=== PATIENT | female | born 1975 | race Caucasian/White ===

== ENCOUNTER 2017-05-20 09:02 | Inpatient (IN) ==
--- NOTE | 2017-05-20 09:45 | Emergency Department Note ---
Disposition Clinical Impression: Recurrent seizures, Brain tumor, glioma Disposition: Admitted As Inpatient Condition: Fair Time of Disposition: 13:41 Seizure HPI - General Chief Complaint: ED Seizure Stated Complaint: seizure Time Seen by Provider: 05/20/17 09:22 Source: EMS Mode of arrival: EMS Limitations: no limitations Nursing Notes Reviewed: Yes Vital Signs Reviewed: Yes - History of Present Illness HPI Narrative: Patient is a 41-year-old female who presents to [facility] ED status post grand mal seizure. Patient is still slightly post ictal in the emergency department upon arrival. Per EMS, patient had a seizure while she was in her bathroom. Mom states she heard her fall and then went to check on her and saw her having a grand mal seizure. Does not know how long this lasted. Past medical history significant for glioblastoma in which she had brain surgery back in November of last year. Her family states that she started having seizures in March and has been on Depakote. The most recently increased the dosage of her Depakote about a month ago. Patient does follow-up with her neurologist Dr. Mathews at [place] and most recently saw him last week. Upon questioning the patient, she denies any prodromal symptoms and states she just passed out. States this is always how her seizures are. Family states these have been recurring more frequently approximately every 2 weeks. Pt Subjective Complaint: seizure Onset (ago): Just RISK MANAGEMENT ANALYST Description of Episode: tonic-clonic movement, post-event confusion Witnessed: yes - by bystander Seizure History: known seizure disorder Place: home Possible Precipitating Event: none Associated symptoms: Reports: confusion. Denies: cough, fever/chills, loss of appetite, shortness of breath, weakness Treatments prior to arrival: none - Related Data Home Medications Medication Instructions Recorded Confirmed Ascorbic Acid [Vitamin C] 500 mg PO DAILY 12/15/16 05/20/17 Metformin HCl [Metformin HCl ER] 1,000 mg PO QPM 05/20/17 05/20/17 Ondansetron [Zofran] 8 mg PO Q8HR PRN 05/20/17 05/20/17 Temozolomide [Temodar] 140 mg PO AD 05/20/17 05/20/17 Temozolomide [Temodar] 200 mg PO AD 05/20/17 05/20/17 Previous Rx's Medication Instructions Recorded Dexamethasone 2 mg PO BID #60 tab 02/18/17 Divalproex (12 HR) [Depakote (12 750 mg PO BID #60 tablet. 04/12/17 HR)] Allergies Allergy/AdvReac Type Severity Reaction Status Date / Time Penicillins Allergy Hives Verified 05/20/17 12:42 All systems ED: reviewed and negative except as stated. Past Medical History - Past Medical History Attestation: Yes The following information was validated with the patient. Source: patient Medical history: Reports: diabetes, hyperlipidemia, hypertension, other Psychiatric history: Reports: no psych history - Social History Smoking Status: Current every day smoker Smokeless Tobacco Status: Yes (Nicoderm patch daily) Alcohol use: Reports: none Drug use: Reports: none Physical Exam - General Limitations: altered mental status General appearance: alert - Head Head exam: atraumatic, normocephalic, normal inspection - Eye Eye exam: Present: EOMI - ENT ENT exam: normal exam, normal oropharynx, mucous membranes moist - Neck Neck exam: Present: normal inspection, full ROM, trachea midline - Chest Chest inspection: Present: normal inspection, symmetric chest wall rise - Respiratory Respiratory exam: Present: normal lung sounds bilaterally - Cardiovascular Cardiovascular exam: Present: regular rate, normal rhythm, normal heart sounds - Abdominal Exam Abdominal exam: Present: soft, Non-Tender. Absent: tenderness, distention, guarding, rebound, rigidity - Extremities Exam Extremities exam: Present: normal inspection, full ROM. Absent: tenderness, pedal edema - Neurological Exam Neurological exam: Present: alert, oriented X3. Absent: motor sensory deficit - Psychiatric Psychiatric exam: Present: normal affect, normal mood - Skin Skin exam: Present: warm, dry, intact, normal color Course Course Narrative: Patient seen and examined. Seizure with postictal period. However initially unwitnessed. Unsure if syncopal episode with head injury caused the seizure or if the seizure happened initially. With her, located history with the brain tumor, we will go ahead and get a CT head, Chelsea metz, [facility]. Her glucose levels were 90 per EMS. - Reevaluation(s) Reevaluation #1: Per social work, family and patient are ready for placement. They would like palliativecare consult. Discussed with hospitalist who has accepted patient for admission. Time: 13:37 Vital Signs Temperature 98.2 F 05/20/17 09:04 Pulse Rate 77 05/20/17 09:04 Respiratory Rate 20 05/20/17 09:04 Blood Pressure 94/80 05/20/17 09:04 O2 Sat by Pulse Oximetry 97 05/20/17 09:04 Temperature 98.2 F 05/20/17 09:04 Pulse Rate 60 05/20/17 11:51 Respiratory Rate 16 05/20/17 11:51 Blood Pressure 134/94 05/20/17 11:51 O2 Sat by Pulse Oximetry 97 05/20/17 11:51 Oxygen Delivery Oxygen Delivery Room Air Seizure - Medical Records Medical records reviewed: Yes I reviewed the patient's medical records. - Lab Data Lab results reviewed: Yes I reviewed the patient's lab results. Result diagrams: 05/20/17 10:31 Lab Results 05/20/17 Range/Units 10:31 Sodium 139 (136-145) mEq/L Potassium 3.8 (3.5-5.1) mEq/L Chloride 104 (98-107) mEq/L Carbon Dioxide 28 (23-29) mEq/L BUN 18 (6-20) mg/dL Creatinine 0.64 (0.60-1.20) mg/dL Est GFR ( Amer) > 60 (> 60) Est GFR (Non-Af Amer) > 60 (> 60) BUN/Creatinine Ratio 28 H (6-26) Glucose 62 L (70-105) mg/dL Calculated Osmolality 288 (280-300) Calcium 9.1 (8.6-10.3) mg/dL Valproic Acid 46 L (50-100) mcg/mL - Radiology Data Radiology results reviewed: Yes I reviewed the patient's radiology results. Head CT 05/20/17 09:23 IMPRESSION: 1. No definite acute intracranial abnormality. 2. Unchanged postoperative changes in the left frontal lobe. Unchanged edema extending across midline into the medial right frontal lobe. Underlying remnant tumor is not excluded and would be better evaluated with MRI. 3. 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 Tumor extension is not excluded. D/ / Akin Harrington MD / Akin Harrington MD Interpreting Provider: Akin Harrington MD Attestation Statement - Attestation Attestation: I examined this patient and my medical decision-making was reviewed with the Resident Physician. I agree with the documented findings, disposition and treatment plan as described except to the extent set forth below. Pt has glioblastoma, still receiving medical treatment but family has been told she only has a couple of months left. Sz today, + hx since dx, on Depakote. Neurologist at [place]. Family concerned she is not at her baseline, but sounds like this has been for a while now - I suspect that this is her new baseline, and she will not return to the level where they are comfortable caring for her. Pt told adoption social worker she needs to be placed somewhere bc family can't take care of her the way she is. Family not ready for hospice per conversation with adoption social worker but ready for palliative care and placement. Loaded with Mat in ED (level sub-therapeutic), admitting for evaluation and placement.
[2017-05-20 11:33] LABS: BUN/Creatinine Ratio 28 (6-26); Blood Urea Nitrogen 18 mg/dL (6-20); Calcium 9.1 mg/dL (8.6-10.3); Carbon Dioxide 28 mEq/L (23-29); Chloride 104 mEq/L (98-107); Glucose 62 mg/dL (70-105); Osmolality,Calculated 288 (280-300); Potassium 3.8 mEq/L (3.5-5.1); Sodium 139 mEq/L (136-145); eGFR For African Americans > 60 (> 60); eGFR For Non-African Americans > 60 (> 60)
[2017-05-20 12:08] LABS: Valproate 46 mcg/mL (50-100)
[2017-05-20] MEDS ORDERED: Valproic Acid INJ 1,000 MG in 0.9 % Sodium Chloride 100 ML IVPB ONE (12:11)
[2017-05-20] MEDS ORDERED: Ondansetron ODT 4 MG TAB.RAPDIS PO PRN (13:18)
[2017-05-20] MEDS ORDERED: Naloxone 0.4 MG/ML INJ IVP PRN (13:19)
--- NOTE | 2017-05-20 13:24 | Internal Med History&Physical ---
<Salvador Green - Last Filed: 05/20/17 13:43> Date of Encounter: 05/20/17 Time of Encounter: 13:22 Assessment and Plan (1) Seizure grand mal Current visit: Yes Status: Acute Increasing frequency of grand mal seizures secondary to glioblastoma multiforme PLAN: -Telemetry -Seizure precautions -Padded side rails -Neuro consult- Spoke with Dr. Sawant how has agreed to consult on the patient -Consult to palliative care. Dr. Smith has agreed to see the patient and further discuss options -Resume Depakote, 1gm bolus IV depakote given in ED -Resume dexamethasone -Heparin 5000 U SQ BID -CBCD, BMP and depakote level in the am (2) Brain tumor, glioma Current visit: Yes Status: Acute H/o glioblasoma multiforme. She see's Dr. Mathews at [facility] in [place], [place]. I spoke with Dr. Mathews who is unsure of her prognosis until after the f/u MRI 4 weeks from now. The patient initially was planning pursue to both chemotherapy and palliative care. However I spoke with Dr. Mathews who stated that she would not be able to receive chemotherapy and palliative care at the same time. She is now unsure as to whether or not she would like to pursue palliative care. Her depakote levels are low. She denies any issues with medication compliance. -Continue Depakote 750mg BID -1gm depakote bolus given in ED -Continue dexamethasone -seizure precautions -apply padding to side rails (3) Diabetes 1.5, managed as type 2 Current visit: Yes Status: Chronic H/O DMII. Holding sliding scale coverage for now hypoglycemic upon arrival to ED. AC/HS accucheck (4) HTN (hypertension) Current visit: Yes Status: Acute stable Qualifiers: Hypertension type: essential hypertension Qualified Code(s): I10 - Essential (primary) hypertension (5) DVT prophylaxis Current visit: Yes Status: Acute Heparin 5000 units SC BID Internal Medicine - H&P: HPI Chief complaint: seizures Admitted From: Home Plans for Post Hospital Care: Home History of present illness: Ms. Ohara is a 41 year old female with a PMH of diabetes, hyperlipidemia, and hypertension who presents to [facility] today status post grand mal seizure. Per the ED physician was reported the patient had a seizure in the bathroom this morning. She and the family both report that she has been having an increase in frequency of seizures for approximately the last 2 weeks. He reports that her mom heard her fall and found her on the ground having a grand mal seizure. She requested a is still mildly postictal. The patient has a medical history for glioblastoma multiform to which she had brain surgery in November 2016. She states that she has been having increasing frequency of seizures since March and has been on Depakote and dexamethasone since. She last saw Dr. Mathews from [facility] approximately 10 days ago and reports that he did not change any of her medications at this time. She denies any prodromal symptoms states that she just feels like she passes out. She denies any constitutional symptoms with the exception of weakness and fatigue. She denies any chest pain, shortness of breath, abdominal pain, nausea, vomiting or diarrhea. Additionally , she denies any vision changes, dizziness, or N/T Past Med Surg Social Fam HX - Past Medical History Medical history: diabetes, hyperlipidemia, hypertension, other Psychiatric history: no psych history - Social History Smoking Status: Current every day smoker Smokeless Tobacco Status: Yes (Nicoderm patch daily) Alcohol use: none Drug use: none - Family History Father Hx Family Endocrine Disorder: Yes (diabetes) Internal Medicine - H&P: Meds Ascorbic Acid [Vitamin C] 500 mg PO DAILY 12/15/16 [History] Dexamethasone 2 mg PO BID #60 tab 02/18/17 [Rx] Divalproex (12 HR) [Depakote (12 HR)] 750 mg PO BID #60 tablet. 04/12/17 [Rx] Metformin HCl [Metformin HCl ER] 1,000 mg PO QPM 05/20/17 [History] Ondansetron [Zofran] 8 mg PO Q8HR PRN 05/20/17 [History] Temozolomide [Temodar] 140 mg PO AD 05/20/17 [History] Temozolomide [Temodar] 200 mg PO AD 05/20/17 [History] 3 Allergy/AdvReac Type Severity Reaction Status Date / Time Penicillins Allergy Hives Verified 05/20/17 12:42 All Systems PM: A 10-system review of systems was performed and is negative for pertinent findings except as documented above in the HPI. - Constitutional Constitutional: fatigue, falls, weakness - EENT Eyes: no blurry vision, no loss of peripheral vision, no loss of vision, no photophobia, no seeing flashes, no spots in vision, no tunnel vision - Cardiovascular Cardiovascular ROS IM: no chest pain, no diaphoresis, no dyspnea, no lightheadedness, no palpitations, no syncope - Respiratory Respiratory: no cough, no dyspnea, no wheezing, no excessive phlegm production - Gastrointestinal Gastrointestinal: no abdominal pain, no diarrhea, no hematemesis, no hematochezia, no melena, no nausea, no vomiting - Genitourinary Genitourinary: no change in urinary stream, no dysuria, no flank pain, no hematuria - Musculoskeletal Musculoskeletal ROS IM: no numbness, no tingling - Integumentary Integumentary IM: no rash, no unusual bruising - Neurological Neurological ROS: other, no abnormal movements, no abnormal speech, no convulsions, no dizziness, no loss of vision, no memory loss, no numbness Additional comments: grand mal seizures - Constitutional Vitals: Temp Pulse Resp BP Pulse Ox 98.2 F 60 16 134/94 97 05/20/17 09:04 05/20/17 11:51 05/20/17 11:51 05/20/17 11:51 05/20/17 11:51 General appearance: Present: cooperative, A&O X 3, no acute distress, answers questions appropriately - Head Head exam: Present: atraumatic, normocephalic - Eye Eye exam: Present: EOMI, PERRL - Neck Neck exam general surgery: Present: supple, trachea midline. Absent: lymphadenopathy - Respiratory Respiratory exam: Present: decreased breath sounds, CTAB. Absent: accessory muscle use, rales, rhonchi, wheezes - Cardiovascular Cardiovascular exam: Present: RRR, +S1, +S2. Absent: diastolic murmur, gallop, rubs, systolic murmur - GI/Abdominal GI/Abdominal exam: Present: normal bowel sounds, soft, no peritoneal signs. Absent: distended, tenderness - Extremities Exam Extremities exam: Present: warm, radial pulses palpable and symmetrical. Absent : calf tenderness, cyanotic, pedal edema - Neurological Exam Neurological exam: Present: alert, CN II-XII intact, oriented X3. Absent: no focal deficits, strengths equal and symetr throughout, pronater drift, facial droop, speech deficit - Skin Skin exam: Present: dry, intact Internal Med - H&P Results - Labs CBC & Chem 7: 05/20/17 10:31 - EKG Data -: EKG Interpreted by Myself - Impressions Impressions Head CT 05/20/17 09:23 IMPRESSION: 1. No definite acute intracranial abnormality. 2. Unchanged postoperative changes in the left frontal lobe. Unchanged edema extending across midline into the medial right frontal lobe. Underlying remnant tumor is not excluded and would be better evaluated with MRI. 3. 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 Tumor extension is not excluded. D/ / Akin Harrington MD / Akin Harrington MD Interpreting Provider: Akin Harrington MD <JohnFrancis - Last Filed: 05/20/17 17:23> Date of Encounter: 05/20/17 Internal Medicine - H&P: HPI History of present illness: Ms. Ohara is a 41 year old female All Systems PM: A 10-system review of systems was performed and is negative for pertinent findings except as documented above in the HPI. - Constitutional Vitals: Temp Pulse Resp BP Pulse Ox 98.1 F 81 16 107/72 100 05/20/17 14:40 05/20/17 14:40 05/20/17 14:40 05/20/17 14:40 05/20/17 14:40 Internal Med - H&P Results - Labs CBC & Chem 7: 05/20/17 10:31 - Attending Attestation I have personally performed a face to face evaluation on this patient. I have reviewed and agree with the care plan provided by JANELLE Green. History and Exam by me shows: Ms. Ohara is a 41 year old female with a PMH of diabetes, hyperlipidemia, hypertension recently diagnosed Glioblastoma s/p surgery since then pt has been having recurrent seizure now she presents to [facility] ER today with inc frequency grand mal seizures. Pt is alert, awake and O x 3, however still looks some confused. Talked to the pt's family at bed side. Chest: Diminished BS b/l Heart: S1S2 ++ RRR Neuro : A, A, O x 3.. slightly confused 1. Acute and recurrent seizure Due to Giloblasotma Depakote levels are low. Talked his Heme Onc , who suggested continue same dose of Depakote pt might not taking her meds as she should Palliative care team consulted
[2017-05-20] MEDS: TEMOZOLOMIDE 140 MG PO SCH (13:50)
[2017-05-20] MEDS: TEMOZOLOMIDE PO SCH (13:51)
--- NOTE | 2017-05-20 15:14 | Electrocardiograph Report ---
[facility] Test Date: 2017-05-20 Pat Name: Izabel Ohara Department: 102 Room: 2S4 Gender: F Product Sales Engineer: : 1975 Requested By: Vivien Duque Order Number: [id number] Reading MD: Skip Mccurdy MD Measurements Intervals [place] Rate: 81 P: 55 WI: 160 QRS: 24 QRSD: 94 T: 43 QT: 386 QTc: 424 Interpretive Statements SINUS RHYTHM wnl Electronically Signed On 05-20-2017 15:13:14 EST by Skip Mccurdy MD
--- NOTE | 2017-05-20 15:39 | Palliative - Consult Note ---
Date of Encounter: 05/20/17 Time of Encounter: 15:00 - Assessment and Plan (1) Nausea Current Visit: Yes Status: Acute Assessment and plan: Continue Ondansetron as needed and monitor effectiveness. (2) Counseling regarding advanced care planning and goals of care Current Visit: Yes Status: Acute Assessment and plan: Patient family at bedside, she remains slightly altered from seizure. Lives with mother, Judy, her brother Carl and his Izabel are power of attorneys and she states she will bring in copies of pt's advanced directives. She also states pt is DNR and that they have a completed state form, but she cannot remember if she is comfort care or DNR Arrest. Discussed at length - will transition to DNR/DNI at this time, and revisit once they bring her form and advanced directives in. Pt mother having difficulty caring for her, and family states this is no longer safe for her to continue. They are desiring ECF placement, Aden Cooper present and speaking with family. They desire placement at [facility]. Discussed goals of care - pt and family desire to continue current chemotherapy regimen until they have MRI completed and discuss results with oncologist at [facility]. Discussed hospice care at length - they do not want to proceed with hospice at this time, but understands that when she either does not want further chemo or is no longer a candidate, hospice could assist with her care. Will continue to follow. (3) Brain tumor, glioma Current Visit: Yes Status: Acute (4) Seizure grand mal Current Visit: Yes Status: Acute Assessment and plan: Continues on Decadron as per home dose. Palliative-CN HPI - Data of Consult Consult date: 05/20/17 Requesting Physician: Rosanna Luna CNP Primary Care Provider: Dennis Bryant MD - Consult Narrative History of present illness: Ms. Ohara is a 41 year old female with a history of glioblastoma, who was admitted after she had a seizure at home. Mother at bedside states she was home with patient when she found her in seizure and states that patient did not "come to" for about 30 minutes. She is alert but has altered mental status. She was diagnosed in Nov 2016 and is under the care of at [facility]. She was recently started on Temozolomide - and just finishing last dose of this for the month. She is scheduled for an MRI on May to assess status of brain cancer. Other medical history includes : Diabetes, hyperlipidemia, and hypertension. She currently lives with her mother at home. Upon my visit, patient is awake alert and oriented to person and place. She is able to answer most questions appropriately and follow simple commands, but family states that she is "not herself" since seizure event this am. Denies any pain/shortness of breath/nausea/vomiting/constipation/anxiety. Resting quietly. Mother and sister n law at bedside. CC: Rosanna Luna CNP Past Med Surg Social Fam HX - Past Medical History Medical history: diabetes, hyperlipidemia, hypertension, other Psychiatric history: no psych history - Social History Smoking Status: Current every day smoker Smokeless Tobacco Status: Yes (Nicoderm patch daily) Alcohol use: none Drug use: none - Family History Father Hx Family Endocrine Disorder: Yes (diabetes) Medications and Allergies Ascorbic Acid [Vitamin C] 500 mg PO DAILY 12/15/16 [History] Dexamethasone 2 mg PO BID #60 tab 02/18/17 [Rx] Divalproex (12 HR) [Depakote (12 HR)] 750 mg PO BID #60 tablet. 04/12/17 [Rx] Metformin HCl [Metformin HCl ER] 1,000 mg PO QPM 05/20/17 [History] Ondansetron [Zofran] 8 mg PO Q8HR PRN 05/20/17 [History] Temozolomide [Temodar] 140 mg PO AD 05/20/17 [History] Temozolomide [Temodar] 200 mg PO AD 05/20/17 [History] 3 Allergy/AdvReac Type Severity Reaction Status Date / Time Penicillins Allergy Hives Verified 05/20/17 12:42 ROS unobtainable: due to mental status Palliative Care-Exam - Constitutional Vitals: Temp Pulse Resp BP Pulse Ox 98.1 F 81 16 107/72 100 05/20/17 14:40 05/20/17 14:40 05/20/17 14:40 05/20/17 14:40 05/20/17 14:40 General appearance: Present: no acute distress - Head Head Exam: Present: normal inspection, normocephalic - Eye Eye exam: Present: normal appearance, PERRL - Respiratory Respiratory exam: Present: CTAB - Cardiovascular Cardiovascular exam: Present: +S1, +S2 - GI/Abdominal Exam GI/Abdominal exam: Present: normal bowel sounds, soft - Extremities Exam Extremities exam: Present: normal capillary refill, normal inspection - Neurological Exam Neurological exam: Present: alert, strengths equal and symetr throughout Additional comments: Oriented to person and place. Reoriented to time and situation - Psychiatric Psychiatric exam: Present: flat affect - Skin Skin exam: Present: dry, pallor, warm Internal Medicine - CN: Reslt - Labs CBC & Chem 7: 05/20/17 10:31 Consult Discharge Plan - Plan Referrals: Dennis Bryant MD [Primary Care Provider] - Palliative Quality Palliative Quality: Screen for Code Status: Yes, Screen for Goals of Care: Yes, Screen for Pain: Yes, If Pain Regimen Started, Initiate Bowel Regimen: NA, Screen for Nausea/Vomitting: Yes Code Status: 05/20/17 14:28 DNR [Resuscitation Status: Active] [RES] Routine Comment: Resuscitation Status: [id number]
--- NOTE | 2017-05-20 15:52 | Palliative - Consult Note ---
Date of Encounter: 05/20/17 - Assessment and Plan (1) Nausea Current Visit: Yes Status: Acute (2) Counseling regarding advanced care planning and goals of care Current Visit: Yes Status: Acute (3) Brain tumor, glioma Current Visit: Yes Status: Acute (4) Seizure grand mal Current Visit: Yes Status: Acute Palliative-CN HPI - Data of Consult Requesting Physician: Rosanna Luna CNP Primary Care Provider: Dennis Bryant MD - Consult Narrative History of present illness: Ms. Ohara is a 41 year old female CC: Rosanna Luna CNP Past Med Surg Social Fam HX - Past Medical History Medical history: diabetes, hyperlipidemia, hypertension, other Psychiatric history: no psych history - Social History Smoking Status: Current every day smoker Smokeless Tobacco Status: Yes (Nicoderm patch daily) Alcohol use: none Drug use: none - Family History Father Hx Family Endocrine Disorder: Yes (diabetes) Medications and Allergies Ascorbic Acid [Vitamin C] 500 mg PO DAILY 12/15/16 [History] Dexamethasone 2 mg PO BID #60 tab 02/18/17 [Rx] Divalproex (12 HR) [Depakote (12 HR)] 750 mg PO BID #60 tablet. 04/12/17 [Rx] Metformin HCl [Metformin HCl ER] 1,000 mg PO QPM 05/20/17 [History] Ondansetron [Zofran] 8 mg PO Q8HR PRN 05/20/17 [History] Temozolomide [Temodar] 140 mg PO AD 05/20/17 [History] Temozolomide [Temodar] 200 mg PO AD 05/20/17 [History] 3 Allergy/AdvReac Type Severity Reaction Status Date / Time Penicillins Allergy Hives Verified 05/20/17 12:42 Palliative Care-Exam - Constitutional Vitals: Temp Pulse Resp BP Pulse Ox 98.1 F 81 16 107/72 100 05/20/17 14:40 05/20/17 14:40 05/20/17 14:40 05/20/17 14:40 05/20/17 14:40 General appearance: Present: no acute distress Internal Medicine - CN: Reslt - Labs CBC & Chem 7: 05/20/17 10:31 Consult Discharge Plan - Plan Referrals: Dennis Bryant MD [Primary Care Provider] - Palliative Quality Palliative Quality: Screen for Code Status: Yes, Screen for Goals of Care: Yes, Screen for Pain: Yes, If Pain Regimen Started, Initiate Bowel Regimen: NA, Screen for Nausea/Vomitting: Yes Code Status: 05/20/17 14:28 DNR [Resuscitation Status: Active] [RES] Routine Comment: Resuscitation Status: [id number]
[2017-05-20] MEDS: *HR* Heparin 5,000 UNIT/ML VIAL SQ SCH (18:21)
[2017-05-20] MEDS: Divalproex (12 HR) 250 MG TABLET PO SCH (20:01)
[2017-05-21 04:44] LABS: Basophils # 0.1 K/mcL (0.0-0.2); Eosinophils # 0.1 K/mcL (0.0-0.6); Eosinophils % 0.9 %; Hematocrit 40.3 % (35.3-44.9); Hemoglobin 13.3 g/dL (11.5-15.4); Immature Granulocytes % 4.3 % (0-4); Lymphocytes # 1.1 K/mcL (0.6-4.6); Lymphocytes % 16.9 %; Mean Corpuscular Hemoglobin 33.4 pg (28.0-33.3); Mean Corpuscular Volume 101.3 fL (83.0-100.0); Mean Platelet Volume 9.4 fL (9.4-12.4); Monocytes # 0.7 K/mcL (0.0-1.3); Monocytes % 10.4 %; Neutrophils # 4.5 K/mcL (1.6-8.9); Platelet Count 209 K/mcL (140-400); Red Blood Count 3.98 M/mcL (3.82-4.97); Red Cell Distribution Width 13.7 % (11.5-14.5); Segmented Neutrophils % 66.5 %
[2017-05-21 05:04] LABS: BUN/Creatinine Ratio 28 (6-26); Blood Urea Nitrogen 18 mg/dL (6-20); Calcium 8.8 mg/dL (8.6-10.3); Carbon Dioxide 28 mEq/L (23-29); Chloride 104 mEq/L (98-107); Glucose 132 mg/dL (70-105); Osmolality,Calculated 292 (280-300); Potassium 4.3 mEq/L (3.5-5.1); Sodium 139 mEq/L (136-145); eGFR For African Americans > 60 (> 60); eGFR For Non-African Americans > 60 (> 60)
[2017-05-21] MEDS: *HR* Heparin 5,000 UNIT/ML VIAL SQ SCH ×2 (05:34→18:45)
--- NOTE | 2017-05-21 09:48 | Palliative Progress Note ---
Date of Encounter: 05/21/17 Time of Encounter: 09:30 - Assessment and plan (1) Brain tumor, glioma Current Visit: Yes Status: Acute Assessment and plan: Neurology has been consulted per Dr. Bennett, will follow recommendations. (2) Seizure grand mal Current Visit: Yes Status: Acute (3) Counseling regarding advanced care planning and goals of care Current Visit: Yes Status: Acute Assessment and plan: Confirmed code status with patient, reported accurate information provided by family and keep code status current. Confirmed placement need at discharge, SW working for completion. (4) Nausea Current Visit: Yes Status: Acute Assessment and plan: Denies nausea at time of exam, continue Zofran as needed. - Time Spent With Patient Total time spent is greater than 50% in coordination of care (as documented) at patient's floor/unit and/or counseling patient: - Subjective Interval history: Patient is awake, alert and oriented on arrival to room. Patient laying with head against side rails that were cushioned for seizure precautions. Assisted patient to reposition for comfort. No complaints of pain, anxiety, or nausea. Confirms need for ECF for placement upon discharge, understands mother is no longer able to care for her. - Constitutional Vitals: Abnormal lab results MCV 101.3 fL (83.0-100.0) H 05/21/17 04:22 MCH 33.4 pg (28.0-33.3) H 05/21/17 04:22 Immature Gran % 4.3 % (0-4) H 05/21/17 04:22 BUN/Creatinine Ratio 28 (6-26) H 05/21/17 04:22 Glucose 132 mg/dL (70-105) H 05/21/17 04:22 POC Glucose 181 (58-89) H 05/20/17 20:41 - Head Head exam: Present: normocephalic - Eye Eye exam: Present: normal appearance, periorbital swelling Additional comments: to left periorbital area. Normal appearance to right periorbital area. - ENT ENT exam: Present: mucous membranes moist - Neck Neck exam: Present: full ROM, normal inspection - Respiratory Respiratory exam: Present: CTAB. Absent: respiratory distress - Cardiovascular Cardiovascular exam: Present: +S1, +S2 - GI/Abdominal GI/Abdominal exam: Present: hypoactive bowel sounds, soft. Absent: guarding, tenderness - Rectal Rectal exam: Present: deferred - Neurological Exam Neurological exam: Present: alert, oriented X3 - Psychiatric Psychiatric exam: Present: flat affect Palliative Quality Palliative Quality: Screen for Code Status: Yes, Screen for Goals of Care: Yes, Screen for Pain: Yes, If Pain Regimen Started, Initiate Bowel Regimen: NA, Screen for Nausea/Vomitting: Yes Code Status: 05/20/17 14:28 DNR [Resuscitation Status: Active] [RES] Routine Comment: Resuscitation Status: [id number] - Labs CBC & Chem 7: 05/21/17 04:22 05/21/17 04:22 Labs: Laboratory Results - last 24 hr 05/20/17 05/20/17 05/20/17 14:26 14:30 17:32 WBC RBC Hgb Hct MCV MCH MCHC RDW Plt Count MPV Immature Gran % Seg Neutrophils % Lymphocytes % Monocytes % Eosinophils % Basophils % Neutrophils # Lymphocytes # Monocytes # Eosinophils # Basophils # Sodium Potassium Chloride Carbon Dioxide BUN Creatinine Est GFR ( Amer) Est GFR (Non-Af Amer) BUN/Creatinine Ratio Glucose POC Glucose 42 L* 51 L 100 H Calculated Osmolality Calcium Valproic Acid 05/20/17 05/21/17 05/21/17 20:41 04:22 04:22 WBC 6.7 RBC 3.98 Hgb 13.3 Hct 40.3 MCV 101.3 H MCH 33.4 H MCHC 33.0 RDW 13.7 Plt Count 209 MPV 9.4 Immature Gran % 4.3 H Seg Neutrophils % 66.5 Lymphocytes % 16.9 Monocytes % 10.4 Eosinophils % 0.9 Basophils % 1.0 Neutrophils # 4.5 Lymphocytes # 1.1 Monocytes # 0.7 Eosinophils # 0.1 Basophils # 0.1 Sodium 139 Potassium 4.3 Chloride 104 Carbon Dioxide 28 BUN 18 Creatinine 0.65 Est GFR ( Amer) > 60 Est GFR (Non-Af Amer) > 60 BUN/Creatinine Ratio 28 H Glucose 132 H POC Glucose 181 H Calculated Osmolality 292 Calcium 8.8 Valproic Acid 05/21/17 04:22 WBC RBC Hgb Hct MCV MCH MCHC RDW Plt Count MPV Immature Gran % Seg Neutrophils % Lymphocytes % Monocytes % Eosinophils % Basophils % Neutrophils # Lymphocytes # Monocytes # Eosinophils # Basophils # Sodium Potassium Chloride Carbon Dioxide BUN Creatinine Est GFR ( Amer) Est GFR (Non-Af Amer) BUN/Creatinine Ratio Glucose POC Glucose Calculated Osmolality Calcium Valproic Acid 54 Consult Discharge Plan - Plan Referrals: Dennis Bryant MD [Primary Care Provider] -
[2017-05-21] MEDS: Ascorbic Acid 500 MG TABLET PO SCH (10:11)
[2017-05-21] MEDS: Divalproex (12 HR) 250 MG TABLET PO SCH ×2 (10:11→20:23)
--- NOTE | 2017-05-21 11:15 | Neurology Progress Note ---
Date of Encounter: 05/21/17 Time of Encounter: 11:14 Assessment and Plan (1) Recurrent seizures Current Visit: Yes Status: Acute Objective - Constitutional Vitals: Temp Pulse Resp BP Pulse Ox 99.0 F 65 16 100/70 96 05/21/17 10:59 05/21/17 10:59 05/21/17 10:59 05/21/17 10:59 05/21/17 10:59 Results - Laboratory Findings CBC and BMP: 05/21/17 04:22 05/21/17 04:22 Abnormal lab findings: Abnormal lab results MCV 101.3 fL (83.0-100.0) H 05/21/17 04:22 MCH 33.4 pg (28.0-33.3) H 05/21/17 04:22 Immature Gran % 4.3 % (0-4) H 05/21/17 04:22 BUN/Creatinine Ratio 28 (6-26) H 05/21/17 04:22 Glucose 132 mg/dL (70-105) H 05/21/17 04:22 POC Glucose 181 (58-89) H 05/20/17 20:41 Consult Discharge Plan - Plan Referrals: Dennis Bryant MD [Primary Care Provider] -
--- NOTE | 2017-05-21 11:15 | Neurology - Consult Note ---
<BrandonsakshiMichoacano alejo - Last Filed: 05/21/17 14:22> Date of Encounter: 05/21/17 Time of Encounter: 11:15 Assessment and Plan (1) Recurrent seizures Current Visit: Yes Status: Acute 40-year-old female with history of stage IV glioblastoma multiforme presented after increased seizure activity found to have Depakote level that was low. Previous frontal lobe surgery in November with increasing seizure activity over the last 2 weeks. Since admission she has received 1 g Depakote bolus and continued on Depakote 75 mg by mouth twice a day with no recurrent seizure activity. She is also receiving dexamethasone and is on seizure precautions which are all appropriate at this time. She has remained stable no new or changed neurologic activity since admission. Patient likely stable for discharge and follow-up with her neurologist. Continue on Depakote 750 mg twice a day History of Present Illness HPI: Ms. Ohara is a 41 year old female known medical history of diabetes, hypertension, hyperlipidemia and glioblastoma multiform Presented with symptoms of grand mal seizure. She had fallen at home her by her mother and found to have seizure-like activity involving her entire body. She last had frontal lobe surgery to remove cancerous growth in November. Over the last few months she has had increased seizure-like activity and was supposed to have increased her Depakote but had not obtained that prescription yet. Since admission she has not had any seizure-like activity she does not have any current pain or discomfort or neurologic abnormalities. She denies any other acute problems at this time. Past Med Surg Social Fam HX - Past Medical History Medical history: diabetes, hyperlipidemia, hypertension, other Psychiatric history: no psych history - Social History Smoking Status: Current every day smoker Smokeless Tobacco Status: Yes (Nicoderm patch daily) Alcohol use: none Drug use: none - Family History Father Hx Family Endocrine Disorder: Yes (diabetes) Medications and Allergies Ascorbic Acid [Vitamin C] 500 mg PO DAILY 12/15/16 [History] Dexamethasone 2 mg PO BID #60 tab 02/18/17 [Rx] Divalproex (12 HR) [Depakote (12 HR)] 750 mg PO BID #60 tablet. 04/12/17 [Rx] Metformin HCl [Metformin HCl ER] 1,000 mg PO QPM 05/20/17 [History] Ondansetron [Zofran] 8 mg PO Q8HR PRN 05/20/17 [History] Temozolomide [Temodar] 140 mg PO AD 05/20/17 [History] Temozolomide [Temodar] 200 mg PO AD 05/20/17 [History] 3 Allergy/AdvReac Type Severity Reaction Status Date / Time Penicillins Allergy Hives Verified 05/20/17 12:42 All Systems: The remainder of the systems were reviewed and are negative - Constitutional Constitutional ROS IM: no anorexia, no chills, no fatigue, no lethargy - Nose, Mouth, Throat Nose, mouth and throat: no disequilibrium - Cardiovascular Cardiovascular ROS IM: no irregular heart rhythm, no radiating pain, no rapid heart rate, no slow heart rate - Respiratory Respiratory IM: no cough, no dyspnea, no wheezing - Gastrointestinal Gastrointestinal: no nausea, no vomiting - Musculoskeletal Musculoskeletal ROS IM: no numbness, no tingling - Neurological Neurological ROS: convulsions, other (Seizure activity) Physical Examination - Vital Signs Vital Signs: Initial Vital Signs Temp Pulse Resp BP Pulse Ox 98.2 F 77 20 94/80 97 05/20/17 09:04 05/20/17 09:04 05/20/17 09:04 05/20/17 09:04 05/20/17 09:04 - Constitutional General appearance: comfortable - Neurologic Sensorimotor examination: intact Detailed motor examination: grossly full strength in all extremities, full strength in all major muscle groups Motor examination - right side: 5/5: deltoids, biceps, triceps, wrist flexion, wrist extension, mailing clerk, hip flexors, tibialis Anterior, quadriceps, toe extension (EHL), plantarflexion Motor examination - left side: 5/5: deltoids, biceps, triceps, wrist flexion, wrist extension, hip flexors, mailing clerk, quadriceps, tibialis Anterior, toe extension (EHL), plantarflexion Detailed sensory examination: intact Reflex and gait examination: intact Reflexes: Biceps: 2+, Triceps: 2+, Brachioradialis: 2+, Patella: 2+, Achilles: 2 + Mental Status Examination: awake, alert, oriented to person, oriented to place, oriented to time, follows commands appropriately, answers questions appropriately, no agnosia, no aphasia, no aproxia Cranial nerve examination: PERRL, EOMI, sensory to face intact, mastication intact, no facial asymmetry is present, no dysarthria, hearing is intact symmetrically, soft palate elevates bilaterally upon phonation, flexes SCM and trapezius muscles symmetrically with full power, tongue protrudes midline, no atrophy or facial fasiculations present Results - Laboratory Findings CBC and BMP: 05/21/17 04:22 05/21/17 04:22 Abnormal lab findings: Abnormal lab results MCV 101.3 fL (83.0-100.0) H 05/21/17 04:22 MCH 33.4 pg (28.0-33.3) H 05/21/17 04:22 Immature Gran % 4.3 % (0-4) H 05/21/17 04:22 BUN/Creatinine Ratio 28 (6-26) H 05/21/17 04:22 Glucose 132 mg/dL (70-105) H 05/21/17 04:22 POC Glucose 181 (58-89) H 05/20/17 20:41 Consult Discharge Plan - Plan Referrals: Denins Bryant MD [Primary Care Provider] - <Atul Watkins I - Last Filed: 05/21/17 16:25> Date of Encounter: 05/21/17 Assessment and Plan (1) Recurrent seizures Current Visit: Yes Status: Acute Pt was seen and examined, my medical decision was reviewed with the Resident Physician, I agree with the documented findings, disposition and treatment plas as described except to the extent set forth below Patient is currently stable I suggest continuing her on current dose of Depakote level is therapeutic now she is already set up with a neurologist as well as with oncology at [facility] suggest to follow up with them Okay to discharge from neurology standpoint Atul Watkins MD All Systems: The remainder of the systems were reviewed and are negative Physical Examination - Vital Signs Vital Signs: Initial Vital Signs Temp Pulse Resp BP Pulse Ox 98.2 F 77 20 94/80 97 05/20/17 09:04 05/20/17 09:04 05/20/17 09:04 05/20/17 09:04 05/20/17 09:04 Results - Laboratory Findings CBC and BMP: 05/21/17 04:22 05/21/17 04:22 Abnormal lab findings: Abnormal lab results MCV 101.3 fL (83.0-100.0) H 05/21/17 04:22 MCH 33.4 pg (28.0-33.3) H 05/21/17 04:22 Immature Gran % 4.3 % (0-4) H 05/21/17 04:22 BUN/Creatinine Ratio 28 (6-26) H 05/21/17 04:22 Glucose 132 mg/dL (70-105) H 05/21/17 04:22
--- NOTE | 2017-05-21 14:39 | Internal Med Progress Note ---
Date of Encounter: 05/21/17 Time of Encounter: 14:28 - Assessment and plan (1) Brain tumor, glioma Current Visit: Yes Status: Acute Assessment and plan: Patient has a history of glioblastoma multiform She follows at our and [facility]. She is to have a follow-up MRI 4 weeks from now with Dr. Mathwes Palliative care was consulted and talked with the family , POA. CODE STATUS is now DNR comfort care arrest DNI Continue dexamethasone Heparin 5000 units subcutaneous twice a day Continue Depakote, 1 g bolus IV Depakote was given in the ED. Depakote level was within normal parameters this morning Neurology service saw the patient and stated she is cleared to be discharged when placement is arranged. He will follow-up with her oncology group at [place] (2) DVT prophylaxis Current Visit: Yes Status: Acute Assessment and plan: Heparin subcutaneous twice a day (3) HTN (hypertension) Current Visit: Yes Status: Acute Assessment and plan: Blood pressure is stable Qualifiers: Hypertension type: essential hypertension Qualified Code(s): I10 - Essential (primary) hypertension (4) Seizure grand mal Current Visit: Yes Status: Acute Assessment and plan: Limits increasing frequency of the seizures secondary to her globablastoma Seizure precautions Neuro consult and with Depakote level at a therapeutic range patient is cleared for discharge (5) Diabetes 1.5, 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 She was hypoglycemic on arrival to the ER Accu-Cheks before meals and at bedtime We will resume low dose sliding scale insulin - Subjective Interval history: Patient is sitting up in the bed working on a puzzle book. She has no complaints at this time. No further seizure activity. No chest pain, shortness of breath, headache, fever, chills or abdominal pain. - Constitutional Vitals: Temp Pulse Resp BP Pulse Ox 99.0 F 65 16 100/70 96 05/21/17 10:59 05/21/17 10:59 05/21/17 10:59 05/21/17 10:59 05/21/17 10:59 General appearance: Present: cooperative, A&O X 3, pleasant, obese, answers questions appropriately - Head Head exam: Present: atraumatic, normocephalic - Eye Eye exam: Present: PERRL, conjuntiva pink, sclera anicteric Pupils: Present: PERRL - Neck Neck exam general surgery: Present: supple, trachea midline. Absent: lymphadenopathy - Respiratory Respiratory exam: Present: decreased breath sounds, CTAB. Absent: accessory muscle use, rales, rhonchi, wheezes - Cardiovascular Cardiovascular exam: Present: RRR, +S1, +S2. Absent: diastolic murmur, gallop, rubs, systolic murmur - GI/Abdominal GI/Abdominal exam: Present: normal bowel sounds, soft, no peritoneal signs. Absent: distended, tenderness - Extremities Exam Extremities exam: Present: warm, radial pulses palpable and symmetrical. Absent : calf tenderness, cyanotic, pedal edema - Neurological Exam Neurological exam: Present: alert, oriented X3, no focal deficits. Absent: pronater drift, facial droop, speech deficit - Skin Skin exam: Present: dry, intact, normal color, warm Internal Medicine: Result - Labs CBC & Chem 7: 05/21/17 04:22 05/21/17 04:22 Labs: Short CBC 05/21/17 Range/Units 04:22 WBC 6.7 (4.3-11.1) K/mcL Hgb 13.3 (11.5-15.4) g/dL Hct 40.3 (35.3-44.9) % Plt Count 209 (140-400) K/mcL Neutrophils # 4.5 (1.6-8.9) K/mcL BMP 05/21/17 04:22 Sodium 139 Potassium 4.3 Chloride 104 Carbon Dioxide 28 BUN 18 Creatinine 0.65 Glucose 132 H Calcium 8.8 Consult Discharge Plan - Plan Referrals: Dennis Bryant MD [Primary Care Provider] -
[2017-05-21] MEDS: TEMOZOLOMIDE PO SCH (18:22)
[2017-05-21] MEDS: TEMOZOLOMIDE 140 MG PO SCH (18:23)
[2017-05-22] MEDS: *HR* Heparin 5,000 UNIT/ML VIAL SQ SCH ×2 (06:01→17:54)
[2017-05-22] MEDS: Divalproex (12 HR) 250 MG TABLET PO SCH ×2 (08:36→21:48)
[2017-05-22] MEDS: Ascorbic Acid 500 MG TABLET PO SCH (08:36)
--- NOTE | 2017-05-22 11:10 | Palliative Progress Note ---
Date of Encounter: 05/22/17 Time of Encounter: 10:45 - Assessment and plan (1) Recurrent seizures Current Visit: No Status: Acute Assessment and plan: Currently controlled. Patient with glioma. Currently on Depakote. (2) Brain tumor, glioma Current Visit: Yes Status: Acute Assessment and plan: Patient on decradon. Tolerating. F/U MRI in [place] in 4 weeks. (3) Counseling regarding advanced care planning and goals of care Current Visit: Yes Status: Acute Assessment and plan: Awaiting Medicaid approval for for oral chemo at [facility]. Social Service on board to working on placement. Patient DNRCC - A, DNI. - Time Spent With Patient Total time spent is greater than 50% in coordination of care (as documented) at patient's floor/unit and/or counseling patient: 25 - 35 minutes - Subjective Interval history: Patient sleeping. Awakens easy. Denies pain or discomfort. Patient with glioma. - Constitutional Vitals: Abnormal lab results MCV 101.3 fL (83.0-100.0) H 05/21/17 04:22 MCH 33.4 pg (28.0-33.3) H 05/21/17 04:22 Immature Gran % 4.3 % (0-4) H 05/21/17 04:22 BUN/Creatinine Ratio 28 (6-26) H 05/21/17 04:22 Glucose 132 mg/dL (70-105) H 05/21/17 04:22 POC Glucose 113 (58-89) H 05/21/17 21:15 - Head Head exam: Present: atraumatic - Eye Eye exam: Present: PERRL - ENT ENT exam: Present: mucous membranes moist - Respiratory Respiratory exam: Present: CTAB - Cardiovascular Cardiovascular exam: Present: RRR, +S1, +S2 - GI/Abdominal GI/Abdominal exam: Present: normal bowel sounds, soft - Neurological Exam Neurological exam: Present: alert, oriented X3 - Psychiatric Psychiatric exam: Present: normal affect - Skin Skin exam: Present: pallor, warm Palliative Quality Palliative Quality: Screen for Code Status: Yes, Screen for Goals of Care: Yes, Screen for Pain: Yes, If Pain Regimen Started, Initiate Bowel Regimen: NA, Screen for Nausea/Vomitting: Yes Code Status: 05/20/17 14:28 DNR [Resuscitation Status: Active] [RES] Routine Comment: Resuscitation Status: [id number] - Labs CBC & Chem 7: 05/21/17 04:22 05/21/17 04:22 Labs: Laboratory Results - last 24 hr 05/21/17 05/21/17 05/21/17 07:00 11:01 16:29 POC Glucose 97 H 82 127 H 05/21/17 21:15 POC Glucose 113 H Consult Discharge Plan - Plan Referrals: Dennis Bryant MD [Primary Care Provider] -
[2017-05-22] MEDS: TEMOZOLOMIDE PO SCH (13:38)
[2017-05-22] MEDS: TEMOZOLOMIDE 140 MG PO SCH (13:38)
--- NOTE | 2017-05-22 15:04 | Internal Med Progress Note ---
Date of Encounter: 05/22/17 Time of Encounter: 15:05 - Assessment and plan (1) Brain tumor, glioma Current Visit: Yes Status: Acute Assessment and plan: Patient has a history of glioblastoma multiform She follows and in [facility]. She is to have a follow-up MRI 4 weeks from now with Dr. Mathews Palliative care was consulted and talked with the family and POA. CODE STATUS is now DNR comfort care arrest DNI Continue dexamethasone Heparin 5000 units subcutaneous twice a day Continue Depakote, 1 g bolus IV Depakote was given in the ED. Depakote level was within normal parameters this morning Neurology service saw the patient and stated she is cleared to be discharged when placement is arranged. She will follow-up with her oncology group at [place] (2) DVT prophylaxis Current Visit: Yes Status: Acute Assessment and plan: Heparin subcutaneous bid (3) HTN (hypertension) Current Visit: Yes Status: Acute Assessment and plan: Blood pressure stable Qualifiers: Hypertension type: essential hypertension Qualified Code(s): I10 - Essential (primary) hypertension (4) Seizure grand mal Current Visit: Yes Status: Acute Assessment and plan: increasing frequency of the seizures secondary to her globablastoma Seizure precautions Neuro consult and with Depakote level at a therapeutic range patient is cleared for discharge (5) Diabetes 1.5, 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 She was hypoglycemic on arrival to the ER Accu-Cheks before meals and at bedtime resume low dose sliding scale insulin - Subjective Interval history: Patient is lying in bed in no distress and has no complaints. - Constitutional Vitals: Temp Pulse Resp BP Pulse Ox 98.1 F 75 18 129/90 95 05/22/17 11:49 05/22/17 11:49 05/22/17 11:49 05/22/17 11:49 05/22/17 11:49 General appearance: Present: cooperative, A&O X 3, pleasant, obese, answers questions appropriately - Head Head exam: Present: atraumatic, normocephalic - Eye Eye exam: Present: PERRL, conjuntiva pink, sclera anicteric Pupils: Present: PERRL - Neck Neck exam general surgery: Present: supple, trachea midline. Absent: lymphadenopathy - Respiratory Respiratory exam: Present: CTAB. Absent: accessory muscle use, rales, rhonchi, wheezes - Cardiovascular Cardiovascular exam: Present: RRR, +S1, +S2. Absent: diastolic murmur, gallop, rubs, systolic murmur - GI/Abdominal GI/Abdominal exam: Present: normal bowel sounds, soft, no peritoneal signs. Absent: distended, tenderness - Extremities Exam Extremities exam: Present: warm, radial pulses palpable and symmetrical. Absent : calf tenderness, cyanotic, pedal edema - Neurological Exam Neurological exam: Present: alert, CN II-XII intact, oriented X3, no focal deficits. Absent: motor sensory deficit, pronater drift, facial droop, speech deficit - Skin Skin exam: Present: dry, intact, normal color, warm Internal Medicine: Result - Labs CBC & Chem 7: 05/21/17 04:22 05/21/17 04:22 Consult Discharge Plan - Plan Referrals: Dennis Bryant MD [Primary Care Provider] -
[2017-05-23] MEDS: *HR* Heparin 5,000 UNIT/ML VIAL SQ SCH ×2 (05:46→17:29)
[2017-05-23] MEDS: Ascorbic Acid 500 MG TABLET PO SCH (08:52)
[2017-05-23] MEDS: Divalproex (12 HR) 250 MG TABLET PO SCH ×2 (08:52→20:46)
--- NOTE | 2017-05-23 09:39 | Internal Med Progress Note ---
Date of Encounter: 05/23/17 Time of Encounter: 09:37 - Assessment and plan (1) Brain tumor, glioma Current Visit: Yes Status: Acute Assessment and plan: Patient has a history of glioblastoma multiform She is to have a follow-up MRI 4 weeks from now with Dr. Mathews in [place] Palliative care was consulted and talked with the family and POA. CODE STATUS is now DNR comfort care arrest DNI Continue dexamethasone Heparin 5000 units subcutaneous twice a day Continue Depakote, 1 g bolus IV Depakote was given in the ED. Depakote level is now within normal parameters Neurology service saw the patient and stated she is cleared to be discharged when placement is arranged. She will follow-up with her oncology group at [place] (2) DVT prophylaxis Current Visit: Yes Status: Acute Assessment and plan: Heparin subcut (3) HTN (hypertension) Current Visit: Yes Status: Acute Assessment and plan: Blood pressure is stable Qualifiers: Hypertension type: essential hypertension Qualified Code(s): I10 - Essential (primary) hypertension (4) Seizure grand mal Current Visit: Yes Status: Acute Assessment and plan: increasing frequency of seizures secondary to her globablastoma Seizure precautions Neuro consult and with Depakote level at a therapeutic range patient is cleared for discharge (5) Diabetes 1.5, 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 She was hypoglycemic on arrival to the ER Accu-Cheks before meals and at bedtime Resume low dose sliding scale insulin - Subjective Interval history: Patient is lying in bed, flat, no eye contact. Denies any pain, discomfort, seizure activity. - Constitutional Vitals: Temp Pulse Resp BP Pulse Ox 98.2 F 42 16 138/84 96 05/23/17 07:28 05/23/17 07:28 05/23/17 07:28 05/23/17 07:28 05/23/17 07:28 General appearance: Present: cooperative, A&O X 3, pleasant, obese, answers questions appropriately - Head Head exam: Present: atraumatic, normocephalic - Eye Eye exam: Present: PERRL, conjuntiva pink, sclera anicteric Pupils: Present: PERRL - Neck Neck exam general surgery: Present: supple, trachea midline. Absent: lymphadenopathy - Respiratory Respiratory exam: Present: CTAB. Absent: accessory muscle use, rales, rhonchi, wheezes - Cardiovascular Cardiovascular exam: Present: RRR, +S1, +S2. Absent: diastolic murmur, gallop, rubs, systolic murmur - GI/Abdominal GI/Abdominal exam: Present: normal bowel sounds, soft, no peritoneal signs. Absent: distended, tenderness - Extremities Exam Extremities exam: Present: warm, radial pulses palpable and symmetrical. Absent : calf tenderness, cyanotic, pedal edema - Neurological Exam Neurological exam: Present: alert, CN II-XII intact, oriented X3, no focal deficits. Absent: pronater drift, facial droop, speech deficit - Skin Skin exam: Present: dry, intact, normal color, warm Internal Medicine: Result - Labs CBC & Chem 7: 05/21/17 04:22 05/21/17 04:22 Consult Discharge Plan - Plan Referrals: Dennis Bryant MD [Primary Care Provider] -
[2017-05-23] MEDS: TEMOZOLOMIDE PO SCH (16:26)
[2017-05-23] MEDS: TEMOZOLOMIDE 140 MG PO SCH (16:26)
[2017-05-24] MEDS: *HR* Heparin 5,000 UNIT/ML VIAL SQ SCH ×2 (05:46→20:07)
[2017-05-24] MEDS: Divalproex (12 HR) 250 MG TABLET PO SCH ×2 (09:05→20:07)
[2017-05-24] MEDS: Ascorbic Acid 500 MG TABLET PO SCH (09:06)
--- NOTE | 2017-05-24 10:26 | Internal Med Progress Note ---
Date of Encounter: 05/24/17 Time of Encounter: 10:23 - Assessment and plan (1) Brain tumor, glioma Current Visit: Yes Status: Acute Assessment and plan: Patient has a history of glioblastoma multiform. She is to have a follow-up MRI 4 weeks from now with Dr. Mathews in [place] Palliative care consulted and talked with the family and POA. CODE STATUS is now DNR comfort care arrest DNI Continue dexamethasone Heparin 5000 units subcutaneous twice a day Continue Depakote, 1 g bolus IV Depakote was given in the ED. Depakote level is now within normal parameters Neurology service saw the patient and stated she is cleared to be discharged when placement is arranged. She will follow-up with her oncology group at [place] No seizure activity (2) DVT prophylaxis Current Visit: Yes Status: Acute Assessment and plan: Continue Heparin subcut (3) HTN (hypertension) Current Visit: Yes Status: Acute Assessment and plan: Blood pressure remains stable Qualifiers: Hypertension type: essential hypertension Qualified Code(s): I10 - Essential (primary) hypertension (4) Seizure grand mal Current Visit: Yes Status: Acute Assessment and plan: increasing frequency of seizures secondary to her globablastoma Seizure precautions Neuro consult, with Depakote level at a therapeutic range patient is cleared for discharge (5) Diabetes 1.5, 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 She was hypoglycemic on arrival to the ER Accu-Cheks before meals and at bedtime low dose sliding scale insulin - Subjective Interval history: Patient is side lying in bed, awakens to verbal stimuli with slow responses to questions. Denies any pain, discomfort, seizure activity. - Constitutional Vitals: Temp Pulse Resp BP Pulse Ox 98.3 F 41 16 118/80 94 05/24/17 06:58 05/24/17 06:58 05/24/17 06:58 05/24/17 06:58 05/24/17 06:58 General appearance: Present: cooperative, A&O X 3, pleasant, obese, answers questions appropriately Exam: flat and withdrawn with slow response - Head Head exam: Present: atraumatic, normocephalic - Eye Eye exam: Present: PERRL, conjuntiva pink, sclera anicteric Pupils: Present: PERRL - Neck Neck exam general surgery: Present: supple, trachea midline. Absent: lymphadenopathy - Respiratory Respiratory exam: Present: CTAB. Absent: accessory muscle use, rales, rhonchi, wheezes - Cardiovascular Cardiovascular exam: Present: RRR, +S1, +S2. Absent: diastolic murmur, gallop, rubs, systolic murmur - GI/Abdominal GI/Abdominal exam: Present: normal bowel sounds, soft, no peritoneal signs. Absent: distended, tenderness - Extremities Exam Extremities exam: Present: warm, radial pulses palpable and symmetrical. Absent : calf tenderness, cyanotic, pedal edema - Neurological Exam Neurological exam: Present: oriented X3, no focal deficits. Absent: pronater drift, facial droop, speech deficit Additional comments: awakens to verbal stimuli with slow response from awaking - Skin Skin exam: Present: dry, intact, normal color, warm Internal Medicine: Result - Labs CBC & Chem 7: 05/21/17 04:22 18 04:22 Consult Discharge Plan - Plan Referrals: Dennis Bryant MD [Primary Care Provider] -
--- NOTE | 2017-05-24 10:47 | Event Note ---
Date of Encounter: 05/24/17 Time of Encounter: 09:30 Patient drowsy but awake. Denies any discomfort. No further seizure activity this admission. 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 Palliative currently not managing any symptoms, code status in place, and discharge plan pending. Will sign off - please call if needed.
[2017-05-24] MEDS: TEMOZOLOMIDE 140 MG PO SCH (16:09)
[2017-05-24] MEDS: TEMOZOLOMIDE PO SCH (16:09)
[2017-05-25] MEDS: *HR* Heparin 5,000 UNIT/ML VIAL SQ SCH (05:49)
[2017-05-25] MEDS: Ascorbic Acid 500 MG TABLET PO SCH (08:47)
[2017-05-25] MEDS: Divalproex (12 HR) 250 MG TABLET PO SCH (08:47)
--- NOTE | 2017-05-25 09:23 | Internal Med Progress Note ---
Date of Encounter: 05/25/17 Time of Encounter: 09:21 - Assessment and plan (1) Brain tumor, glioma Current Visit: Yes Status: Acute Assessment and plan: Patient has history of glioblastoma multiform. She is to have a follow-up MRI 4 weeks from now with Dr. Mathews in [place] Palliative care consulted and talked with the family and POA. CODE STATUS is now DNR comfort care arrest DNI Continue dexamethasone Heparin 5000 units subcutaneous twice a day Continue Depakote, 1 g bolus IV Depakote was given in the ED. Depakote level is now within normal parameters Neurology service saw the patient and stated she is cleared to be discharged when placement is arranged. She will follow-up with her oncology group at [place] No seizure activity (2) DVT prophylaxis Current Visit: Yes Status: Acute Assessment and plan: Continue the Heparin subcut (3) HTN (hypertension) Current Visit: Yes Status: Acute Assessment and plan: Blood pressure remains stable at this time Qualifiers: Hypertension type: essential hypertension Qualified Code(s): I10 - Essential (primary) hypertension (4) Seizure grand mal Current Visit: Yes Status: Acute Assessment and plan: increasing frequency of seizures secondary to her globablastoma, Seizure precautions Neuro following, with Depakote level at a therapeutic range patient is cleared for discharge (5) Diabetes 1.5, managed as type 2 Current Visit: Yes Status: Chronic Assessment and plan: History of diabetes mellitus type 2, hypoglycemic on arrival to the ER Accu-Cheks before meals and at bedtime low dose sliding scale insulin (6) DNR (do not resuscitate) Current Visit: Yes Status: Acute Assessment and plan: pallative team signed off, await placement - Subjective Interval history: Patient is sitting up in bed eating her breakfast. She is very alert this morning. She stated she walked to the gift shop yesterday but did not find anything to by. She denies any complaints and no further seizure activity. Await placement. - Constitutional Vitals: Temp Pulse Resp BP Pulse Ox 98.2 F 40 16 134/85 97 05/25/17 07:28 05/25/17 07:28 05/25/17 07:28 05/25/17 07:28 05/25/17 07:31 General appearance: Present: cooperative, A&O X 3, pleasant, obese, answers questions appropriately - Head Head exam: Present: atraumatic, normocephalic Additional comments: Partial alopecia - Eye Eye exam: Present: PERRL, conjuntiva pink, sclera anicteric Pupils: Present: PERRL - Neck Neck exam general surgery: Present: supple, trachea midline. Absent: lymphadenopathy - Respiratory Respiratory exam: Present: CTAB. Absent: accessory muscle use, rales, rhonchi, wheezes - Cardiovascular Cardiovascular exam: Present: RRR, +S1, +S2. Absent: diastolic murmur, gallop, rubs, systolic murmur - GI/Abdominal GI/Abdominal exam: Present: normal bowel sounds, soft, no peritoneal signs. Absent: distended, tenderness - Extremities Exam Extremities exam: Present: warm, radial pulses palpable and symmetrical. Absent : calf tenderness, cyanotic, pedal edema - Neurological Exam Neurological exam: Present: alert, CN II-XII intact, oriented X3, no focal deficits. Absent: pronater drift, facial droop, speech deficit - Skin Skin exam: Present: dry, normal color, warm Internal Medicine: Result - Labs CBC & Chem 7: 05/21/17 04:22 05/21/17 04:22 Consult Discharge Plan - Plan Referrals: Dennis Bryant MD [Primary Care Provider] -
[2017-05-25] MEDS: TEMOZOLOMIDE PO SCH (13:30)
[2017-05-25] MEDS: TEMOZOLOMIDE 140 MG PO SCH (13:30)
--- NOTE | 2017-05-25 15:23 | Physician Discharge Referral ---
ExtendedCare Referral Info Transfer To: [facility] Provider in Charge: brittani - Diagnosis (1) Brain tumor, glioma Priority: Primary Status: Acute (2) HTN (hypertension) Priority: Primary Status: Chronic (3) Seizure grand mal Priority: Primary Status: Chronic (4) Diabetes 1.5, managed as type 2 Priority: Primary Status: Chronic (5) DNR (do not resuscitate) Priority: Primary Status: Acute - Transfer Medications Home Medications: Ascorbic Acid [Vitamin C] 500 mg PO DAILY 12/15/16 [History] Dexamethasone 2 mg PO BID #60 tab 02/18/17 [Rx] Divalproex (12 HR) [Depakote (12 HR)] 750 mg PO BID #60 tablet. 04/12/17 [Rx] Metformin HCl [Metformin HCl ER] 1,000 mg PO QPM 05/20/17 [History] Ondansetron [Zofran] 8 mg PO Q8HR PRN 05/20/17 [History] Temozolomide [Temodar] 140 mg PO AD 05/20/17 [History] Temozolomide [Temodar] 200 mg PO AD 05/20/17 [History] Allergies/Adverse Reactions: 3 Allergy/AdvReac Type Severity Reaction Status Date / Time Penicillins Allergy Hives Verified 05/20/17 12:42 - Respiratory Orders Smoking Cessation: Smoking cessation has been advised. For more information, call the [place] Tobacco Quit Line at 3-376-OXVVNOW. - Ancillary Orders May use pressure relief devices daily prn - Advance Directives Living Will: Yes Power of Jogger Operator: Yes Code Status: DNR-Comfort Care - Mobility Orders Ambulate - Rehabiliation Orders Rehab Potential: Poor - Diet Orders Regular CERTIFICATION: I certify that the transfer of the above named patient to an Extended Care Facility is necessary for the continuing treatment of the diagnosis listed. The above information is true and accurate reflection of patient's current condition. Confidential - Redisclosure prohibited without a patient's written consent.
--- NOTE | 2017-05-25 15:26 | Discharge Summary ---
Date of Encounter: 05/25/17 Time of Encounter: 15:23 - Discharge Diagnosis (1) Brain tumor, glioma Priority: Primary Status: Acute Comments: Patient has history of glioblastoma multiform. She is to have a follow-up MRI 4 weeks from now with Dr. Mathews in [place] Palliative care consulted and talked with the family and POA. CODE STATUS is now DNR comfort care arrest DNI Continue dexamethasone Heparin 5000 units subcutaneous twice a day Continue Depakote, 1 g bolus IV Depakote was given in the ED. Depakote level is now within normal parameters Neurology service saw the patient and stated she is cleared to be discharged when placement is arranged. She will follow-up with her oncology group at [place] No seizure activity (2) HTN (hypertension) Priority: Primary Status: Chronic Comments: Blood pressure is stable at this time Qualifiers: Hypertension type: essential hypertension Qualified Code(s): I10 - Essential (primary) hypertension (3) Seizure grand mal Priority: Primary Status: Chronic Comments: Increasing frequency of seizures secondary to her glioblastoma Seizure precautions, neuro was consulted and has released her to go now that her Depakote is in the therapeutic range (4) Diabetes 1.5, managed as type 2 Priority: Primary Status: Chronic Comments: History of diabetes mellitus type 2 and was hypokalemic on arrival to the ER She was on Accu-Cheks before meals and at bedtime here with low-dose sliding scale insulin We will continue her home regime on transfer to a skilled facility (5) DNR (do not resuscitate) Priority: Primary Status: Acute Comments: Palliative team had met with the family the patient and her power of deputy commonwealth's attorney and discussed CODE STATUS this has been arranged and she will be a DNR/DNI comfort care and will go to [facility] Hospital course: Ms. Ohara is a 41 year old female who was admitted with grand mal seizures secondary to her glioma brain tumor. Her Depakote level was found to be low and she was given a gram loading dose in the ER. She has been seizure-free during her stay. It has been deemed that she needs to go to a skilled facility as her mother who is very elderly is unable to care for her at home anymore. She will go to [facility] today. Please refer to details in assessment and plan for further information on the stay. Discharge discussed with: patient, nurse, social work - Time Spent with Patient Total time spent providing and/or coordinating discharge services: Less than 30 minutes - Discharge Medications Home Medications: Ascorbic Acid [Vitamin C] 500 mg PO DAILY 12/15/16 [History] Divalproex (12 HR) [Depakote (12 HR)] 750 mg PO BID #60 tablet. 04/12/17 [Rx] Metformin HCl [Metformin HCl ER] 1,000 mg PO QPM 05/20/17 [History] Ondansetron [Zofran] 8 mg PO Q8HR PRN 05/20/17 [History] Temozolomide [Temodar] 140 mg PO AD 05/20/17 [History] Temozolomide [Temodar] 200 mg PO AD 05/20/17 [History] Dexamethasone [Decadron] 2 mg PO BIDWM tablet 05/25/17 [Rx] Allergies/Adverse Reactions: 3 Allergy/AdvReac Type Severity Reaction Status Date / Time Penicillins Allergy Hives Verified 05/20/17 12:42 Date of admission: 05/20/17 14:02 Primary care physician: Dennis Bryant MD Discharging clinician: Marilu Bennett Anticipated date of discharge: 05/25/17 - Constitutional Vitals: Temp Pulse Resp BP Pulse Ox 98.4 F 64 16 97/65 95 05/25/17 11:28 05/25/17 11:28 05/25/17 11:28 05/25/17 11:28 05/25/17 11:28 General appearance: Present: cooperative, A&O X 3, pleasant, obese, answers questions appropriately - Head Head exam: Present: atraumatic, normocephalic - Eye Eye exam: Present: PERRL, conjuntiva pink, sclera anicteric Pupils: Present: PERRL - Neck Neck exam general surgery: Present: supple, trachea midline. Absent: lymphadenopathy - Respiratory Respiratory exam: Present: CTAB. Absent: accessory muscle use, rales, rhonchi, wheezes - Cardiovascular Cardiovascular exam: Present: RRR, +S1, +S2. Absent: diastolic murmur, gallop, rubs, systolic murmur - GI/Abdominal GI/Abdominal exam: Present: normal bowel sounds, soft, no peritoneal signs. Absent: distended, tenderness - Extremities Exam Extremities exam: Present: warm, radial pulses palpable and symmetrical. Absent : calf tenderness, cyanotic, pedal edema - Neurological Exam Neurological exam: Present: alert, CN II-XII intact, oriented X3, no focal deficits. Absent: pronater drift, facial droop, speech deficit - Skin Skin exam: Present: dry, normal color, warm - Patient Status Disposition: Transfer SNF Condition: Fair Functional capacity at discharge: independent ambulation Overall status at discharge: patient is back to baseline - Discharge Instructions Follow Up With: Dennis Bryant MD [Primary Care Provider] - - Diet and Activity Activity: resume usual activities as tolerated Diet: diabetic diet
[2017-05-25 15:42] VITALS: BP 97/72
== END 2017-05-25 16:15 | DRG 41 ==
LOC: 2SOUTHHOLD 09:02 → EMEROO 09:02 → 2SOUTHHOLD 12:00 → 3BNU 17:29
PROVIDERS: ADMIT Family Medicine; ATTEND Registered Nurse